=== PATIENT | male | born 1995 | race Caucasian/White ===

== ENCOUNTER 2018-12-27 16:39 | Emergency (ER) | payer OTHER ==
[2018-12-27 16:59] VITALS: BP 120/75
--- NOTE | 2018-12-27 17:09 | UC ---
Lower Extremity/Ankle HPI - HPI Summary HPI Summary: 23 yo male injured his right foot 2-3 weeks ago reinjured 2 days ago now unble to bear wt - History of Current Complaint Chief Complaint: UCLowerExtremity Stated Complaint: RIGHT FOOT INJURY Time Seen by Provider: 12/27/18 16:41 Hx Obtained From: Patient Onset/Duration: Sudden Onset Severity Initially: Mild Severity Currently: Mild Pain Intensity: 4 Pain Scale Used: 0-10 Numeric Aggravating Factor(s): Standing, Ambulation Alleviating Factor(s): Rest, Elevation Able to Bear Weight: No - not comfortablely Feet (Multiple View): 1 - tender here - Allergies/Home Medications Allergies/Adverse Reactions: Allergies Allergy/AdvReac Type Severity Reaction Status Date / Time No Known Allergies Allergy Verified 12/27/18 16:54 Home Medications: Home Medications NK [No Home Medications Reported] 12/27/18 [History Confirmed 12/27/18] PMH/Surg Hx/FS Hx/Imm Hx Previously Healthy: Yes - Surgical History Surgical History: Yes Surgery Procedure, Year, and Place: 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, 2012 - Social History Alcohol Use: None Substance Use Type: None Smoking Status (MU): Never Smoked Tobacco Review of Systems All Other Systems Reviewed And Are Negative: Yes Constitutional: Positive: Negative Skin: Positive: Negative Eyes: Positive: Negative ENT: Positive: Negative Respiratory: Positive: Negative Cardiovascular: Positive: Negative Gastrointestinal: Positive: Negative Genitourinary: Positive: Negative Motor: Positive: Negative Neurovascular: Positive: Negative Musculoskeletal: Positive: Arthralgia Neurological: Positive: Negative Psychological: Positive: Negative Physical Exam Triage Information Reviewed: Yes Appearance: Well-Appearing, No Pain Distress, Well-Nourished, Ill-Appearing Vital Signs: Initial Vital Signs Temp 98.4 F 12/27/18 16:55 Pulse 78 12/27/18 16:55 Resp 16 12/27/18 16:55 BP 120/75 12/27/18 16:55 Pulse Ox 99 12/27/18 16:55 Vital Signs Reviewed: Yes Eyes: Positive: Conjunctiva Clear ENT: Positive: Hearing grossly normal. Negative: Trismus, Muffled voice, Hoarse voice Neck: Positive: Supple, Nontender, No Lymphadenopathy Respiratory: Positive: Lungs clear, Normal breath sounds, No respiratory distress Musculoskeletal: Positive: ROM Intact, Other: - tender base of R 5th MT, ankle and knee ok Neurological: Positive: Alert Psychological Exam: Normal Skin Exam: Normal Diagnostics - Radiology No standard instances Radiology Interpretation Completed By: Radiologist Summary of Radiographic Findings: no fracture Lower Extremity Course/Dx - Differential Dx/Diagnosis Provider Diagnosis: Right foot sprain Discharge ED - Sign-Out/Discharge Documenting (check all that apply): Patient Departure All imaging exams completed and their final reports reviewed: Yes - Discharge Plan Condition: Stable Disposition: HOME Patient Education Materials: Crutch Instructions (ED), Foot Sprain (ED), Walking Boot (ED) Referrals: Conrad Jones MD [Medical Doctor] - 1 Week (recheck in 1-2 weeks if not better) Additional Instructions: rest tylenol or advil recheck in 1-2 weeks if not completely better - Billing Disposition and Condition Condition: STABLE Disposition: Home
== END 2018-12-27 18:01 | disposition home or self-care (01) ==
LOC: UCCORT 16:39
DX: S93.601A Unspecified sprain of right foot, initial encounter (principal); X58.XXXA Exposure to other specified factors, initial encounter; Y92.9 Unspecified place or not applicable
CPT/HCPCS: 99203; G0463